=== PATIENT | male | born 1960 | race Caucasian/White ===

== ENCOUNTER 2016-10-17 10:52 | Emergency (ER) | payer MEDICAID | END 2016-10-17 13:00 | disposition left against medical advice (07) | LOC: D.ER 10:52 | DX: S91.312A Laceration without foreign body, left foot, initial encounter (principal); X58.XXXA Exposure to other specified factors, initial encounter; Y93.89 Activity, other specified; Y92.89 Other specified places as the place of occurrence of the external cause ==